=== PATIENT | female | born 1960 | race Caucasian/White ===

== ENCOUNTER → 2016-08-21 | Outpatient (CLI) | payer BC ==
--- NOTE | 2016-08-21 15:15 | DIAGNOSTIC IMAGING REPORT ---
CT SCAN OF THE PARANASAL SINUSES CLINICAL HISTORY: Chronic sinusitis. Left-sided sinus pain and pressure. COMPARISON STUDY: No priors. TECHNIQUE: High-resolution CT scan of the paranasal sinuses is performed. Images are reviewed in the axial, sagittal, and coronal planes. IV contrast was not administered for this examination. CT DOSE: 459.44 mGy.cm FINDINGS: Postoperative change: There are postoperative changes from bilateral maxillary antrectomy with antrostomy formation as well as evidence of ethmoid sinus resection. Maxillary antra: There is trace dependent mucosal thickening seen bilaterally. Ethmoid cavities:: Clear. Sphenoid sinuses: Clear. Frontal sinuses: Clear. Ostiomeatal complexes: The antrostomies are widely patent bilaterally. Frontoethmoidal and sphenoethmoidal recesses: Patent bilaterally. Carotid arteries: The carotid arteries are covered findings noting septal attachment on the right. Ethmoid roofs: The ethmoid roofs are symmetric. Nasal turbinates: Normal in appearance. Nasal septum: There is mild rightward deviation of the bony nasal septum with a leftward oriented spur posteriorly. Optic nerves: Covered. Orbits: The bony orbits are intact. Orbital contents are normal in appearance. Calvarium: The imaged calvarium is normal in appearance. Degenerative change is seen involving the temporomandibular joints. Mastoid air cells: Well pneumatized. Brain parenchyma: Partially visualized brain parenchyma is within normal limits. IMPRESSION: Postoperative change as above. No significant paranasal sinus disease is seen. Electronically signed by: Ankush Amaya M.D. 08/21/2016 3:14 PM Dictated Date/Time: 08/21/2016 3:00 PM
== END | disposition home or self-care (01) ==
LOC: C.CTS 14:49
PROVIDERS: ATTEND Otolaryngology
DX: J32.0 Chronic maxillary sinusitis (principal); J32.2 Chronic ethmoidal sinusitis